=== PATIENT | male | born 1975 | race Two or more races ===

== ENCOUNTER 2016-09-01 13:24 | Emergency (ER) | payer SELFPAY ==
--- NOTE | 2016-09-01 14:35 | ER Document Report ---
HPI - HPI Patient complains to provider of: ear fullness in the right ear Onset: Other Onset/Duration: Gradual - This week Pain Level: 4 Context: 40-year-old male complaining of ear pain ear fullness and ringing in his ears. He recently had an upper respiratory infection no fever or chills. He can hear better out of his left ear than his right ear. Associated Symptoms: None Exacerbated by: Denies Relieved by: Denies - ROS ROS below otherwise negative: Yes Systems Reviewed and Negative: Yes All other systems reviewed and negative - CARDIOVASCULAR Cardiovascular: DENIES: Chest pain - DERM Skin Color: Normal Past Medical History - General Information source: Patient - Social History Smoking Status: Never Smoker Chew tobacco use (# tins/day): No Frequency of alcohol use: None Drug Abuse: None Lives with: Family Family History: Reviewed & Not Pertinent Patient has suicidal ideation: No Patient has homicidal ideation: No - Medical History Medical History: Negative Renal/ Medical History: Denies: Hx Peritoneal Dialysis Surgical Hx: Negative - Immunizations Hx Diphtheria, Pertussis, Tetanus Vaccination: No Vertical Provider Document - CONSTITUTIONAL Agree With Documented VS: Yes General Appearance: No Apparent Distress - INFECTION CONTROL TRAVEL OUTSIDE OF THE [place] IN LAST 30 DAYS: No - HEENT HEENT: Normocephalic Notes: Left TM is normal there is minimal amount wax in the left ear canal which is normal. Right ear canal is occluded with cerumen. - NECK Neck: Supple. negative: Lymphadenopathy-Left, Lymphadenopathy-Right - RESPIRATORY Respiratory: Breath Sounds Normal, No Respiratory Distress O2 Sat by Pulse Oximetry: 96 - CARDIOVASCULAR Cardiovascular: Regular Rate, Regular Rhythm - MUSCULOSKELETAL/EXTREMETIES Musculoskeletal/Extremeties: NIKHIL BERUMEN - NEURO Level of Consciousness: Awake, Alert, Appropriate - DERM Integumentary: Warm, Dry, No Rash Course - Re-evaluation Re-evalutation: 09/01/16 15:31 I irrigated the ear with warm water and wax female easily. His hearing is now normal in his right ear. Right ear canal and eardrum after wax removal 09/01/16 15:34 - Vital Signs Vital signs: Temp Pulse Resp BP Pulse Ox 98.9 F 92 17 135/92 H 96 09/01/16 13:54 09/01/16 13:54 09/01/16 13:54 09/01/16 13:54 09/01/16 13:54 Discharge - Discharge Clinical Impression: cerumen impaction Condition: Good Disposition: HOME, SELF-CARE Instructions: Cerumen Impaction ([facility]) Additional Instructions: to er any concern Forms: Return to Work
[2016-09-01] MEDS ORDERED: DOCUSATE SODIUM 100 MG CAPSULE RT_EAR ONE (14:37)
[2016-09-01 15:58] VITALS: BP 141/82
== END 2016-09-01 15:57 | disposition home or self-care (01) ==
LOC: ER 13:24 → EDBD 13:24 → ER 15:57
DX: H61.21 Impacted cerumen, right ear (principal); H92.01 Otalgia, right ear
CPT/HCPCS: 99282

== ENCOUNTER 2016-12-29 23:50 | Inpatient (IN) | payer MEDICARE ==
[2016-12-30 01:04] LABS: ABSOLUTE LYMPHOCYTES (AUTO) 1.1 10^3/uL (0.5-4.7); ABSOLUTE MONOCYTES (AUTO) 1.1 10^3/uL (0.1-1.4); ABSOLUTE NEUT (AUTO) 10.1 10^3/uL (1.7-8.2); BASOPHILS % (AUTO) 0.4 % (0-2); EOSINOPHILS % (AUTO) 0.3 % (0-6); HEMOGLOBIN 15.2 g/dL (13.5-17.0); HGB HCT DIFFERENCE -0.4; LYMPHOCYTES % (AUTO) 8.9 % (13-45); MEAN CORPUSCULAR HEMOGLOBIN 29.9 pg (27.0-33.4); MEAN CORPUSCULAR HGB CONC 33.1 g/dL (32.0-36.0); MEAN CORPUSCULAR VOLUME 90 fl (80-97); MONOCYTES % (AUTO) 8.6 % (3-13); RED CELL DISTRIBUTION WIDTH 13.5 % (11.5-14.0); SEGMENTED NEUTROPHILS % (AUTO) 81.8 % (42-78); WHITE BLOOD COUNT 12.3 10^3/uL (4.0-10.5)
[2016-12-30 01:11] LABS: ALANINE AMINOTRANSFERASE 33 U/L (21-72); ALBUMIN 3.7 g/dL (3.5-5.0); ALKALINE PHOSPHATASE 52 U/L (38-126); ANION GAP 11 (5-19); ASPARTATE AMINO TRANSFERASE 26 U/L (17-59); BILIRUBIN,DIRECT 0.3 mg/dL (0.0-0.4); BILIRUBIN,TOTAL 0.5 mg/dL (0.2-1.3); BLOOD UREA NITROGEN 32 mg/dL (7-20); CALCIUM 8.4 mg/dL (8.4-10.2); CARBON DIOXIDE 23 mmol/L (22-30); CHLORIDE 106 mmol/L (98-107); CREATININE RESULT 2.25 mg/dL (0.52-1.25); GLUCOSE 102 mg/dL (75-110); POTASSIUM 4.2 mmol/L (3.6-5.0); TOTAL PROTEIN 6.7 g/dL (6.3-8.2)
[2016-12-30] MEDS ORDERED: PIPERACILLIN/TAZOBACTAM 3.375 GM VIAL IV ONE (02:01)
[2016-12-30] MEDS ORDERED: VANCOMYCIN HCL INJ 1000 MG VIAL IV ONE (02:01)
[2016-12-30] MEDS ORDERED: HYDROMORPHONE HCL INJ/PF 2 MG/ML AMPULE IV ONE (02:01)
--- NOTE | 2016-12-30 02:07 | ER Document Report ---
ED General - General Chief Complaint: Fall Injury Stated Complaint: FALL/RIGHT LEG INJURY Time Seen by Provider: 12/30/16 01:56 TRAVEL OUTSIDE OF THE [place] IN LAST 30 DAYS: No - Related Data Allergies/Adverse Reactions: tramadol Allergy (Verified 12/30/16 00:10) Past Medical History - Social History Smoking Status: Never Smoker Chew tobacco use (# tins/day): No Frequency of alcohol use: None Drug Abuse: None Family History: Reviewed & Not Pertinent Renal/ Medical History: Denies: Hx Peritoneal Dialysis - Immunizations Hx Diphtheria, Pertussis, Tetanus Vaccination: No Physical Exam - Vital signs Vitals: Temp Pulse Resp BP Pulse Ox 99.0 F 94 18 154/103 H 98 12/30/16 00:10 12/30/16 00:10 12/30/16 00:10 12/30/16 00:10 12/30/16 00:10 Course - Re-evaluation Re-evalutation: 12/30/16 02:08 Chronically ill 41-year-old male with heart failure and chronic kidney disease presenting with what he describes as acute onset ecchymosis redness and pain of the right lower extremity after an injury 3 days ago consisting of scratches. He has a low-grade temperature. On exam he has ecchymosis on the medial calf with tenderness in an area of fluctuance. Taken together these findings are slightly concerning for necrotizing soft tissue infection. He was ordered for Zofran Zosyn and vancomycin and fluids. His labs are already coming back and his white count is mildly elevated. His sodium is normal. I immediately spoke with Dr. Hirsch from surgery at 2 AM who agreed to see the patient in consultation. I attempted needle aspiration of the abscess cavity but did not get any fluid. Will pursue formal I&D eventually. - Vital Signs Vital signs: Temp Pulse Resp BP Pulse Ox 99.0 F 94 18 160/99 H 97 12/30/16 00:10 12/30/16 00:10 12/30/16 00:10 12/30/16 02:19 12/30/16 02:19 - Laboratory Result Diagrams: 12/30/16 00:40 12/30/16 00:40 Laboratory results interpreted by me: 12/30/16 12/30/16 12/30/16 00:40 00:40 00:40 WBC 12.3 H Seg Neutrophils % 81.8 H Lymphocytes % 8.9 L Absolute Neutrophils 10.1 H ESR 29 H BUN 32 H Creatinine 2.25 H Est GFR ( Amer) 39 L Est GFR (Non-Af Amer) 33 L C-Reactive Protein 12/30/16 00:40 WBC Seg Neutrophils % Lymphocytes % Absolute Neutrophils ESR BUN Creatinine Est GFR ( Amer) Est GFR (Non-Af Amer) C-Reactive Protein 25.7 H Discharge - Discharge Clinical Impression: Hematoma of lower extremity Qualifiers: Encounter type: initial encounter Laterality: right Qualified Code(s): S80.11XA - Contusion of right lower leg, initial encounter Condition: Good Disposition: ADMITTED INPATIENT Admitting Provider: Hospitalist Unit Admitted: Telemetry
[2016-12-30] MEDS ORDERED: LIDOCAINE 1% INJ (10 MG/ML) 10 ML MDV INJ ONE (02:32)
--- NOTE | 2016-12-30 03:19 | RADIOLOGY REPORT (SQ) ---
EXAM DESCRIPTION: TIBIA FIBULA RIGHT COMPLETED DATE/TIME: 12/30/2016 3:00 am REASON FOR STUDY: r/o gas, soft tissue inf COMPARISON: None. NUMBER OF VIEWS: Two views. TECHNIQUE: Two radiographic images acquired of the right tibia and fibula to include the knee and an kle in at least one projection. LIMITATIONS: None. FINDINGS: MINERALIZATION: Normal. BONES: No acute fracture or dislocation. No worrisome bone lesions. SOFT TISSUES: Moderate diffuse swelling. No radiopaque foreign body. OTHER: No other significant finding. IMPRESSION: Moderate diffuse swelling of the right lower leg. No significant bone or joint defect. TECHNICAL DOCUMENTATION: JOB ID: [id number] [employer]- All Rights Reserved
--- NOTE | 2016-12-30 04:37 | HISTORY AND PHYSICAL E ---
History and Physical NAME: JANNETTE ROQUE : 1975 AGE: 41Y ADMITTED: 12/30/2016 ROOM: ED16 CHIEF COMPLAINT: Pains and swelling of the right lower leg. HISTORY OF PRESENT ILLNESS: This is a 41-year-old male, who has right leg fell through a wooden floor about 4 days ago. He sustained bruises on the right lower leg up to above the knee. He was able to work 2 shifts yesterday and later last night noted that his leg is more swollen, but denies any significant discomfort. Because of the swelling and prominence on the right above ankle area, the patient went to the emergency room. 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 He was diagnosed to have congestive heart failure and kidney failure. His cardiac functions apparently recovered with the cardiac function of 59% about 2 years ago, but his kidney function remained stage III kidney failure with a creatinine of about 2.5. MEDICATIONS: He is on daily p.o. Lasix, 200 mg of metoprolol. Takes also another cardiac medication. ALLERGIES: None known. SOCIAL HISTORY: Denies smoking. Drinks socially. Denies recreational drug use. FAMILY HISTORY: Noncontributory. REVIEW OF SYSTEMS: Denies any visual or hearing problems. No chest pain, shortness of breath, diarrhea. No constipation or dysuria. Some mild discomfort along the right leg. Rest of the systems reviewed and are normal. PHYSICAL EXAMINATION: GENERAL: Well-developed, somewhat obese 41-year-old male, alert and oriented, in no apparent acute distress. HEENT/NECK: Supple. No thyromegaly. LUNGS: Clear. HEART: Regular sinus rhythm. ABDOMEN: Soft, nontender. EXTREMITIES: The right leg has scratches from the ankle all the way to above the knee. There is some dark discoloration of the right calf and slightly more swollen compared to the left. No tenderness of the calf, but some mild discomfort in dorsal flexion of the foot. He has got prominent swelling on the right medial above ankle area roughly measuring about 2 inch x 2 inch. There is no fluctuation, but definitely has some skin stretching and minimal tenderness. Unfortunately, this area was percutaneously attempted to be drained in the ER. This appears to be an obvious hematoma. The fact that needle was introduced potentially a potential for infection. IMPRESSION: 1. Hematoma on right lower leg. 2. Rule out DVT. 3. History of stage III kidney failure. RECOMMENDATIONS: 1. To do an ultrasound of both leg veins to rule out DVT on the right leg. 2. Will need incision and drainage of the hematoma to prevent potential infection and may need to be done in the OR. Therefore, we may keep the patient n.p.o. and start hydration because of his stage III kidney failure. DICTATING PHYSICIAN: ISRAEL MC M.D. [id number] PHY#: [id number] ID: [id number] JOB#: [id number] ACCT: [id number] cc:MIKAELA GRULLON M.D. >
[2016-12-30] MEDS ORDERED: DIPH/PERTUSS(ACELL)/TETANUS VAC/PF 0.5 ML SYR (>=10YO) IM ONE (04:50)
[2016-12-30] MEDS ORDERED: MORPHINE SULFATE 10 MG/ML INJ IV PRN (04:51)
[2016-12-30] MEDS ORDERED: PROMETHAZINE HCL 25 MG TABLET PO PRN (04:53)
[2016-12-30] MEDS ORDERED: DEXTROSE 40% GEL 15 GM TUBE PO PRN ×2 (04:54)
[2016-12-30] MEDS ORDERED: DEXTROSE 50%-WATER 25 GM/50 ML DISP.SYRIN IV PRN ×2 (04:54)
[2016-12-30] MEDS ORDERED: DEXTROSE 5%-NORMAL SALINE 1,000 ML IV PRN (04:54)
[2016-12-30] MEDS ORDERED: GLUCAGON,HUMAN RECOMB 1 MG INJ SUBCUT PRN (04:54)
[2016-12-30] MEDS ORDERED: ACETAMINOPHEN 325 MG TABLET PO PRN (04:58)
[2016-12-30] MEDS ORDERED: PHARMACY COMMUNICATION ORDER MC SCH (05:00)
[2016-12-30] MEDS ORDERED: VANCOMYCIN HCL 0 MG in DEXTROSE 5%-WATER 250 ML IV NR (05:00)
--- NOTE | 2016-12-30 05:14 | PDOC H&P ---
History of Present Illness Admission Date/PCP: 12/30/16 03:15 Primary care provider none Patient complains of: Right lower extremity swelling and pain History of Present Illness: JANNETTE ROQUE is a 41 year old morbidly obese -[place] male, with a number of underlying chronic comorbidities, including hypertension, chronic kidney disease, uncertain stage, congestive heart failure, recently significantly improved according to patient, by echocardiogram, obstructive sleep apnea, setting of 13, without home O2, arthritis, mild anxiety and depression, without suicidal or homicidal ideation, and neurofibromatosis, who presents to the emergency room for evaluation of above complaints. Patient has been discussed with emergency room physician who evaluated the patient. Prior to my being called, the patient was seen and evaluated by on- call general surgery, who according to the emergency room physician, plans to take the patient to the operating room for exploration of the area of involvement later this morning. Per emergency room physician, surgeon did not feel the area of involvement was consistent with necrotizing fasciitis. While walking through a house 3 days ago, he stepped on an area that had been damaged by water, and his right leg went through the floor. Suffered a number of mild abrasions. Since then, he has had slowly increasing redness tenderness and some swelling. There is been no nausea vomiting, fever or chills. No history of MRSA infection. Has been greater than 5 years since his last tetanus booster. Dictation via voice recognition software. Laboratory results are listed in [employer] and are reviewed. X-ray summary results are listed below, with full report(s) reviewed. . Social history/personal habits: Single. No children. 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 Allergies/adverse reactions are listed in [employer] and are reviewed. Home medications initially autopopulated into [employer] may not accurately reflect patient's true medications, dosages, and/or frequencies. pc tech to reconcile medications. Unfortunately, patient not certain of all medications/dosages/frequencies. REVIEW OF SYSTEMS: Constitutional: No fever or chills. Eyes: No vision complaints. ENT: No swallowing problems or complaints. Denies hearing loss. Pulmonary: No current complaints. Cardiovascular: No current complaints, including chest pain. Gastrointestinal: No current complaints, including nausea or vomiting. Skin: See history and present illness. Hematologic: Denies easy bruising. Neurologic: No current complaints, including numbness or tingling. Musculoskeletal: See history and present illness. Joint pain from arthritis. Psychiatric: Mild anxiety and depression. Denies suicidal or homicidal ideation Endocrine: No current complaints, including polyuria. Genitourinary: No current complaints, including dysuria. PHYSICAL EXAMINATION: 5 feet 7 inches tall. 147.7 kg. BMI 51 kg/m.Blood pressure 156/92. 98% saturation on room air. Pulse 94. Temperature 99.0. Morbidly obese otherwise well-developed -[place] male appearing a bit younger than his stated age. Pleasant awake alert and cooperative. Appears perhaps slightly fatigued. Mildly anxious, without agitation. Skin is warm and dry. No grossly obvious evidence of rash in areas of skin examined. Multiple small nodules, in particular on the face, typically seen with neurofibromatosis. ENT: Hearing grossly normal to normal conversation. Tongue midline on protrusion pink and slightly moist. Eyes: No scleral icterus. Pupils equal and reactive to light at 4 mm. Acme conjunctivae. Neck is supple and nontender to gentle active range of motion and palpation. Midline trachea. No palpable thyroid nodule mass enlargement or tenderness. Lymphatic: No palpable cervical or clavicular nodes. Neck and lymphatic exams limited by patient body habitus. Psychiatric: Reasonable insight into acute and chronic medical issues. Oriented to time location and why here. Lungs: Auscultation reveals clear and equal breath sounds bilaterally. No use of accessory respiratory muscles. Cardiovascular: Heart regular rate and rhythm, without gallop murmur or rub. No carotid or abdominal aortic bruits. Faintly palpable dorsalis pedis pulses. Abdomen:soft obese nontender with positive bowel sounds. Unable to adequately evaluate abdomen for masses or organomegaly due to body habitus. Extremities: Feet are warm and dry. No left calf tenderness to compression. No grossly obvious visual evidence of left calf swelling. Gentle manipulation of lower extremities fails to reveal any obvious evidence of injury or instability to knees hips or ankles. Examination of the right lower extremity reveals a number of linear scratches/ abrasions on the medial surface. He has mild diffuse inflammation slight warmth , and tenderness in the areas of involvement with the scratches and abrasions. Mild soft tissue swelling also, extending onto the dorsum of the right foot. Number of areas of ecchymosis, including somewhat localized slightly raised area approximately 3 x 5 cm. Of note, emergency room physician attempted to aspirate the site, but without success. No crepitus fluctuance or expressible discharge. Neurologic: Moves upper extremities grossly normally. Patellar reflexes absent. Absent Babinski. Light touch is intact at feet. Dorsiflexion and plantarflexion of feet 5 / 5 and symmetric. Past Medical History Cardiac Medical History: Reports: Congestive Heart Failure, Hypertension Denies: Atrial Fibrillation, Coronary Artery Disease, DVT, Myocardial Infarction, Hyperlipidema, Pulmonary Embolism Pulmonary Medical History: Reports: Sleep Apnea Denies: Asthma, Chronic Obstructive Pulmonary Disease (COPD) EENT Medical History: Denies: Eyes, Ears, Throat Neurological Medical History: Denies: Hemorrhagic CVA, Ischemic CVA, Seizures Endocrine Medical History: Denies: Diabetes Mellitus Type 1, Diabetes Mellitus Type 2, Hyperthyroidism, Hypothyroidism Renal/ Medical History: Reports: Chronic Kidney Disease - Uncertain stage; no old labs available for comparison GI Medical History: Denies: Cirrhosis, Gastroesophageal Reflux Disease, Hepatitis, Peptic Ulcer Disease Musculoskeltal Medical History: Reports: Arthritis Skin Medical History: Reports: Other - Neurofibromatosis Psychiatric Medical History: Reports: Depression - Denies suicidal or homicidal ideation, General Anxiety Disorder Denies: Alcohol Dependency, Substance Abuse, Tobacco Dependency Hematology: Reports: None Infectious Medical History: Denies: Hepatitis B, Hepatitis C, Methicillin-Resistant Staph Aureus Past Surgical History Past Surgical History: Reports: Cholecystectomy Social History Information Source: Patient, Emergency Med Personnel, [facility] Records Smoking Status: Unknown if Ever Smoked Frequency of Alcohol Use: Social Drugs: None - Advance Directive Resuscitation Status: Full Code Surrogate healthcare decision maker:: A friend Jered ulrich Family History Family History: Reviewed & Not Pertinent Parental Family History Reviewed: Yes - Parents are alive. Father diabetic. Mother with "tumors." Children Family History Reviewed: NA Sibling(s) Family History Reviewed.: Yes - Healthy Medication/Allergy Home Medications: Fosinopril Sodium [Monopril] 40 mg PO DAILY 12/30/16 Furosemide [Lasix] 40 mg PO DAILYP PRN 12/30/16 Metoprolol Succinate [Toprol XL 200 mg Tablet] 200 mg PO DAILY 12/30/16 Sodium Bicarbonate 975 mg PO BID 12/30/16 Spironolactone [Aldactone 25 mg Tablet] 25 mg PO DAILY 12/30/16 Allergies/Adverse Reactions: tramadol Allergy (Verified 12/30/16 04:51) Physical Exam Vital Signs: Temp Pulse Resp BP Pulse Ox 99.0 F 94 18 156/92 H 98 12/30/16 00:10 12/30/16 00:10 12/30/16 00:10 12/30/16 04:32 12/30/16 04:32 Results Impressions: Tibia/Fibula X-Ray 12/30/16 02:01 IMPRESSION: Moderate diffuse swelling of the right lower leg. No significant bone or joint defect. Assessment & Plan - Diagnosis (1) Cellulitis of right leg Is this a current diagnosis for this admission?: YesPlan: Intravenous vancomycin, along with Ancef. Surgery to take patient to the operating room this morning for exploration of the area of involvement. Tdap. I have strongly encouraged patient not to get out of bed without notifying staff , to avoid a fall with injury. Knee high SCDs for DVT prophylaxis, left lower extremity only, along with subcutaneous heparin. Impression and plans were discussed with patient, who concurs. Time spent in evaluation and management of patient: 70 minutes. (2) CHF (congestive heart failure) Qualifiers: Congestive heart failure type: unspecified congestive heart failure type Congestive heart failure chronicity: chronic Qualified Code(s): I50.9 - Heart failure, unspecified Is this a current diagnosis for this admission?: YesPlan: No evidence of acute exacerbation of same. Resume home medications as appropriate once these have been determined and reviewed. (3) CKD (chronic kidney disease) Qualifiers: Chronic kidney disease stage: unspecified stage Qualified Code(s): N18.9 - Chronic kidney disease, unspecified Is this a current diagnosis for this admission?: YesPlan: No old labs available for comparison. Follow-up chemistry. Resume home medications as appropriate once these have been determined and reviewed. (4) HTN (hypertension) Qualifiers: Hypertension type: essential hypertension Qualified Code(s): I10 - Essential (primary) hypertension Is this a current diagnosis for this admission?: YesPlan: Resume home medications as appropriate once these have been determined and reviewed. (5) Morbid obesity with BMI of 50.0-59.9, adult Is this a current diagnosis for this admission?: YesPlan: Dietary consult. (6) Neurofibromatosis Is this a current diagnosis for this admission?: Yes (7) STEVIE (obstructive sleep apnea) Is this a current diagnosis for this admission?: YesPlan: CPAP - Time Time Spent: 50 to 70 Minutes Anticipated discharge: Home Within: Other - Inpatient Certification Based on my medical assessment, after consideration of the patient's comorbidities, presenting symptoms, or acuity I expect that the services needed warrant INPATIENT care.: Yes I certify that my determination is in accordance with my understanding of Medicare's requirements for reasonable and necessary INPATIENT services [42 CFR 412.3e].: Yes Medical Necessity: Need Close Monitoring Due to Risk of Patient Decompensation, Need For IV Fluids, Need for IV Antibiotics, Need for Surgery, Risk of Complication if Not Cared For in Hospital Post Hospital Care: D/C or Transfer Summary
[2016-12-30] MEDS ORDERED: CEFAZOLIN 1 GM/D5W RTU 1 GM/50 ML RTUPB IV SCH (06:00)
[2016-12-30] MEDS: HEPARIN SOD (PORCINE) 5,000 UNIT/ML 1 ML SYRINGE SUBCUT SCH ×3 (06:37→21:28)
[2016-12-30 07:06] LABS: ABSOLUTE EOSINOPHILS # (AUTO) 0.1 10^3/uL (0.0-0.6); ABSOLUTE LYMPHOCYTES (AUTO) 1.1 10^3/uL (0.5-4.7); ABSOLUTE NEUT (AUTO) 6.9 10^3/uL (1.7-8.2); BASOPHILS % (AUTO) 0.5 % (0-2); EOSINOPHILS % (AUTO) 0.6 % (0-6); HEMOGLOBIN 14.4 g/dL (13.5-17.0); HGB HCT DIFFERENCE 0.2; MEAN CORPUSCULAR HEMOGLOBIN 30.5 pg (27.0-33.4); MEAN CORPUSCULAR HGB CONC 33.5 g/dL (32.0-36.0); MEAN CORPUSCULAR VOLUME 91 fl (80-97); MONOCYTES % (AUTO) 10.8 % (3-13); RED BLOOD COUNT 4.72 10^6/uL (4.35-5.55); RED CELL DISTRIBUTION WIDTH 13.6 % (11.5-14.0); SEGMENTED NEUTROPHILS % (AUTO) 76.1 % (42-78); WHITE BLOOD COUNT 9.1 10^3/uL (4.0-10.5)
[2016-12-30 07:29] LABS: ANION GAP 9 (5-19); BLOOD UREA NITROGEN 28 mg/dL (7-20); CALCIUM 8.3 mg/dL (8.4-10.2); CARBON DIOXIDE 23 mmol/L (22-30); CHLORIDE 109 mmol/L (98-107); CREATININE RESULT 1.82 mg/dL (0.52-1.25); GLUCOSE 100 mg/dL (75-110); POTASSIUM 4.2 mmol/L (3.6-5.0); SODIUM 140.8 mmol/L (137-145)
[2016-12-30] MEDS ORDERED: SUCCINYLCHOLINE CHLORIDE INJ 200 MG/10 ML VIAL ONE (08:53)
--- NOTE | 2016-12-30 09:35 | RADIOLOGY REPORT (SQ) ---
EXAM DESCRIPTION: VENOUS UNILATERAL LOWER COMPLETED DATE/TIME: 12/30/2016 2:34 am REASON FOR STUDY: swelling COMPARISON: None. TECHNIQUE: Dynamic and static gomez scale and color images acquired of the right leg venous system. S elected spectral images acquired with additional compression and augmentation maneuvers. The contrala teral common femoral vein and saphenofemoral junction were also imaged. Images stored on PACS. LIMITATIONS: None. FINDINGS: RIGHT COMMON FEMORAL: Normal phasicity, compression and augmentation. No visualized echogenic material on g ray scale. No defects on color images. FEMORAL: Normal compression and augmentation. No visualized echogenic material on gomez scale. No defe cts on color images. POPLITEAL: Normal compression, augmentation. No visualized echogenic material on gomez scale. No defec ts on color images. CALF VESSELS: Normal compression, augmentation. No visualized echogenic material on gomez scale. No de fects on color images. GSV and SSV: Normal compression, augmentation. No visualized echogenic material on gomez scale. No def ects on color images. ANY DEEP VENOUS INSUFFICIENCY: Not evaluated. In the right upper medial calf, 8 heterogeneously hypoechoic structure is present along the superfici al aspect of the medial head gastrocnemius muscle which could be a Manzo's cyst with superimposed hem orrhage or infection, or, a soft tissue hematoma. Muscular tear with hematoma is possible. By imagi ng criteria, abscess could not be excluded. LEFT COMMON FEMORAL VEIN AND SAPHENOFEMORAL JUNCTION: Normal phasicity, compression and augmentation. No visualized echogenic material on gomez scale. No de fects on color images. IMPRESSION: NO EVIDENCE OF DVT OR SVT IN THE RIGHT LEG. 4.3 x 1.5 x 1.4 cm complex cystic structure in the medial right popliteal fossa, likely a complicated Manzo's cyst with superimposed hemorrhage or rupture. TECHNICAL DOCUMENTATION: JOB ID: [id number] [employer]- All Rights Reserved
[2016-12-30] MEDS ORDERED: FENTANYL CITRATE INJ/PF 250 MCG/5 ML AMPULE ONE (10:15)
[2016-12-30] MEDS ORDERED: FENTANYL CITRATE INJ/PF 100 MCG/2 ML AMPUL ONE (10:15)
[2016-12-30] MEDS ORDERED: ACETAMINOPHEN 100 ML IV ONE (10:16)
[2016-12-30] MEDS ORDERED: MIDAZOLAM 2 MG/2 ML INJ ONE (10:16)
[2016-12-30] MEDS ORDERED: PROPOFOL INJ 200 MG/20 ML VIAL IV ONE (10:16)
[2016-12-30] MEDS ORDERED: BUPIVACAINE HCL 0.25 % INJ/PF (2.5 MG/1 ML) 30 ML VIAL ONE (10:23)
--- NOTE | 2016-12-30 10:59 | PDOC PROGRESS REPORT ---
Subjective Progress Note for:: 12/30/16 Subjective:: Mild right leg pain. Physical Exam Vital Signs: Temp Pulse Resp BP Pulse Ox 99.0 F 94 18 157/96 H 98 12/30/16 00:10 12/30/16 00:10 12/30/16 09:49 12/30/16 09:49 12/30/16 09:49 General appearance: PRESENT: no acute distress, cooperative Extremities exam: PRESENT: other - Lower leg with bruising superficial abrasions and mild diffuse swelling. At the inner lower aspect there is a approximately 3 x 5 cm region of fluctuance consistent with a hematoma. Patient has no tenderness behind his right knee and no focal swelling in this region. Results Laboratory Results: 12/30/16 06:50 12/30/16 06:50 12/30/16 12/30/16 06:50 06:50 WBC 9.1 RBC 4.72 Hgb 14.4 Hct 43.0 MCV 91 MCH 30.5 MCHC 33.5 RDW 13.6 Plt Count 226 Seg Neutrophils % 76.1 Lymphocytes % 12.0 L Monocytes % 10.8 Eosinophils % 0.6 Basophils % 0.5 Absolute Neutrophils 6.9 Absolute Lymphocytes 1.1 Absolute Monocytes 1.0 Absolute Eosinophils 0.1 Absolute Basophils 0.0 Sodium 140.8 Potassium 4.2 Chloride 109 H Carbon Dioxide 23 Anion Gap 9 BUN 28 H Creatinine 1.82 H Est GFR ( Amer) 50 L Est GFR (Non-Af Amer) 42 L Glucose 100 Calcium 8.3 L Magnesium 2.0 Impressions: Tibia/Fibula X-Ray 12/30/16 02:01 IMPRESSION: Moderate diffuse swelling of the right lower leg. No significant bone or joint defect. Venous Doppler Study 12/30/16 02:34 IMPRESSION: NO EVIDENCE OF DVT OR SVT IN THE RIGHT LEG. 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 Assessment & Plan - Diagnosis (1) Leg hematoma Qualifiers: Encounter type: initial encounter Laterality: right Qualified Code( s): S80.11XA - Contusion of right lower leg, initial encounter Plan: Status post attempted needle aspiration by emergency department. We will plan evacuation of hematoma in the operating room to avoid infectious risk. Patient understands risk and benefits of the procedure including risk of bleeding and prolonged wound healing. We will plan to do the procedure under LMAC in light of his cardiac Problems in the past. Ultrasound the demonstrated no DVT but did note a Manzo's cyst. It is asx. will leave alone.
[2016-12-30] MEDS ORDERED: IBUPROFEN INJ 800 MG/8 ML VIAL IV ONE (11:12)
[2016-12-30] MEDS ORDERED: METOPROLOL TARTRATE PF/INJ 5 MG/5 ML SDV IV ONE (11:12)
[2016-12-30] MEDS ORDERED: FENTANYL CITRATE INJ/PF 100 MCG/2 ML AMPUL IV PRN ×2 (11:23)
[2016-12-30] MEDS ORDERED: DIPHENHYDRAMINE HCL 50 MG/ML VIAL IV PRN (11:23)
[2016-12-30] MEDS ORDERED: CEFAZOLIN INJ 1 GM VIAL ONE (11:37)
[2016-12-30] MEDS ORDERED: ONDANSETRON HCL INJ/PF 4 MG/2 ML SDV IV PRN (11:44)
--- NOTE | 2016-12-30 11:44 | Operative Report ---
Operative Report DATE OF SURGERY: 12/30/16 PREOPERATIVE DIAGNOSIS: Right leg hematoma POSTOPERATIVE DIAGNOSIS: Right leg hematoma OPERATION: Right leg hematoma evacuation SURGEON: ELIOT REYNAGA ANESTHESIA: GA TISSUE REMOVED OR ALTERED: Blood clots from the right leg COMPLICATIONS: None ESTIMATED BLOOD LOSS: Minimal INTRAOPERATIVE FINDINGS: Approximately 8 x 4 cm hematoma of the right inner lower leg PROCEDURE: Informed consent was obtained. Patient was brought to the operating room placed on the operating table in supine position. After satisfactory induction of general anesthesia patient's right leg was prepped and draped in usual sterile fashion. Patient had a region of fluctuance and bruising at the inner lower aspect of the right lower leg. A longitudinally oriented incision was made entering a hematoma cavity with evacuation of copious amount of blood clots. The blood clot was swabbed for Gram stain and culture. The cavity measured about 8 x 4 cm in size. Hemostasis was achieved with electrocautery. The wound was then irrigated. It was packed with gauze. Patient tolerated procedure well with no apparent complications and was taken to the recovery area in stable condition.
[2016-12-30] MEDS: DOCUSATE SODIUM 100 MG CAPSULE PO SCH ×2 (13:48→18:40)
[2016-12-30] MEDS: CEFAZOLIN 1 GM/D5W RTU 50 ML IV SCH ×3 (13:48→23:25)
[2016-12-30] MEDS ORDERED: METOPROLOL TARTRATE 50 MG TABLET PO ONE (15:00)
--- NOTE | 2016-12-30 15:02 | PROGRESS NOTE E ---
Progress Note NAME: JANNETTE ROQUE : 1975 AGE: 41Y DATE: 12/30/2016 ROOM: 405 SUBJECTIVE: The patient is currently sitting up in bed. He has returned from the OR. The patient states that his symptoms overall are much improved in comparison to when he came in. The patient denies any nausea, vomiting, diarrhea. No shortness of breath, dizziness, chest pain. No fevers, chills. The patient has been afebrile. His blood pressures have been in a good range and the patient does not voice any other concerns at this time. REVIEW OF SYSTEMS: The rest of review of systems are negative. MEDICATIONS: Medications have been reviewed. PHYSICAL EXAMINATION: GENERAL: The patient is a 41-year-old male, who is awake, alert, and oriented to person, place, time, situation. He is verbal, conversational. Does not appear to be in any acute distress. VITAL SIGNS FOLLOWS: Temperature is 98.2, pulse 62, respirations 17, blood pressure 141/90, oxygen saturation is 100% on room air. SKIN: Warm. The patient is diaphoretic. HEENT: Pupils are equal, round, and reactive to light and accommodation. Conjunctivae pink. NECK: No JVP. HEART: Regular rate and rhythm with no murmur or rub. CHEST: Clear, symmetrical, unlabored. ABDOMEN: Soft, nontender, nondistended, obese. BACK: No CVA tenderness or sacral edema. EXTREMITIES: No clubbing or cyanosis. The patient does have evidence of chronic lymphedema lower extremities. Right lower extremity is wrapped in postsurgical dressing. PSYCHIATRIC: Appropriate affect, pleasant mood. DIAGNOSTICS: Lab values are as follows: Hematology obtained on 12/30/2016: WBCs are 9.1, hemoglobin is 14.4, hematocrit is 43.0, platelet count is 226,000. Chemistry obtained on 12/30/2016: Sodium is 140, potassium 4.2, chloride is 109, carbon dioxide 23, BUN 28, creatinine is 1.82, glucose 100, calcium is 8.3, magnesium is 2.0. C-reactive protein is 25.7. MICROBIOLOGY: Wound culture obtained on 12/30/2016 is pending. Blood culture obtained on 12/30/2016 is pending. IMPRESSION AND PLAN: 1. CELLULITIS OF THE RIGHT LOWER EXTREMITY. The patient's hematoma was seen by Surgery and the patient was taken to the operating room for evacuation. The site is currently covered. Will continue current antibiotic coverage. The patient has no prior history of methicillin-resistant Staphylococcus aureus. He did receive a dose of vancomycin in the emergency department. Will await cultures and further guide antibiotic management pending those results. 2. HYPERTENSION. The patient's blood pressure has been mildly elevated. Will resume the patient's home blood pressure medications and follow. 3. ELEVATED CREATININE. Uncertain of the etiology of this. The patient does have noted chronic kidney disease, however, the patient is uncertain when questioned, therefore, I am leery to stage this. Will gently hydrate overnight, repeat creatinine in the a.m., and follow. Given the patient is on chronic bicarbonate, I do feel the patient may have a chronic kidney disease. 4. POSSIBLE HISTORY OF CONGESTIVE HEART FAILURE. The patient gives a report that this may have improved, according to an echocardiogram he had done outpatient. Will continue the patient's beta-cristiano and will add aspirin therapy. He is already on an ARB. 5. OBSTRUCTIVE SLEEP APNEA. Will continue the patient's CPAP. 6. DEEP VENOUS THROMBOSIS PROPHYLAXIS. Will continue subcutaneous heparin. DISPOSITION: The patient is a FULL CODE. Pending patient's symptomatology and diagnostic findings, will reevaluate in the a.m. The patient can be downgraded to a medical bed. Time spent on this followup, including assessment, plan, physical examination, patient education, and speciality collaboration is 35 minutes. DICTATING PHYSICIAN: AUGUSTINA FRANCOIS NP [id number] PHY#: [id number] ID: [id number] JOB#: [id number] ACCT: [id number] cc: >
[2016-12-30] MEDS: NORMAL SALINE 1000 ML 1,000 ML IV PRN (15:57)
[2016-12-30] MEDS ORDERED: SODIUM BICARBONATE PO SCH (18:00)
[2016-12-30] MEDS: SODIUM BICARBONATE 650 MG TABLET PO SCH (18:41)
[2016-12-30] MEDS: OXYCODONE-ACETAMINOPHEN 5-325 MG TABLET PO PRN (21:28)
[2016-12-30] MEDS: METOPROLOL SUCCINATE 50 MG TAB.SR.24H PO SCH (21:28)
[2016-12-30] MEDS ORDERED: METOPROLOL SUCCINATE 100 MG PO SCH (22:00)
[2016-12-31] MEDS: CEFAZOLIN 1 GM/D5W RTU 50 ML IV SCH ×4 (05:25→22:45)
[2016-12-31] MEDS: HEPARIN SOD (PORCINE) 5,000 UNIT/ML 1 ML SYRINGE SUBCUT SCH ×3 (05:49→21:23)
[2016-12-31] MEDS ORDERED: BENZOCAINE/MENTHOL SORE THROAT LOZENGE BUCCAL PRN (09:13)
[2016-12-31] MEDS: METOPROLOL SUCCINATE 50 MG TAB.SR.24H PO SCH ×2 (09:34→21:24)
[2016-12-31] MEDS: ENALAPRIL MALEATE 10 MG TABLET PO SCH (09:35)
[2016-12-31] MEDS: SODIUM BICARBONATE 650 MG TABLET PO SCH ×2 (09:35→17:29)
[2016-12-31] MEDS: DOCUSATE SODIUM 100 MG CAPSULE PO SCH ×2 (09:35→17:29)
[2016-12-31] MEDS: OXYCODONE-ACETAMINOPHEN 5-325 MG TABLET PO PRN ×2 (09:52→21:23)
[2016-12-31] MEDS ORDERED: FUROSEMIDE 40 MG TABLET PO SCH (10:00)
[2016-12-31] MEDS ORDERED: SPIRONOLACTONE 25 MG TABLET PO SCH (10:00)
[2016-12-31] MEDS ORDERED: FOSINOPRIL SODIUM 40 MG PO SCH (10:00)
[2016-12-31] MEDS: NORMAL SALINE 1000 ML 1,000 ML IV PRN (13:23)
--- NOTE | 2016-12-31 14:58 | PDOC PROGRESS REPORT ---
Subjective Progress Note for:: 12/31/16 Subjective:: Patient seen on morning rounds. He is resting comfortably at the present time in bed. He states he has mild to moderate pain in the right lower extremity from surgery. The pain medicine is keeping him comfortable enough. Denies any fever chills. Denies any nausea, vomiting, or abdominal pain. He denies a cough, chest pain or palpitations. Remaining review of systems negative. Physical Exam Vital Signs: Temp Pulse Resp BP Pulse Ox 98.5 F 80 16 127/69 H 98 12/31/16 11:05 12/31/16 14:00 12/31/16 11:05 12/31/16 11:05 12/31/16 13:00 Pulse Oximeter Continuous Start: 12/30/16 15: 42 Freq: RTQ4 Status: Active Document 12/31/16 13:00 [facility] (Rec: 12/31/16 13:25 [facility] [id number]) Pulse Oximetry Assessment Oxygen Saturation (92-100) 98 Oxygen Delivery Method Room Air Fraction of Inspired Oxygen (FIO2) 21 Equipment Usage Equipment in Use Continuous SpO2 Machine # N 5 Intake & Output 12/30/16 12/31/16 01/01/17 06:59 06:59 06:59 Intake Total 2997 Output Total 1445 Balance 1552 Weight 147.7 kg General appearance: PRESENT: no acute distress, morbidly obese, well-developed, well-nourished Head exam: PRESENT: atraumatic, normocephalic Eye exam: PRESENT: conjunctiva pink, EOMI, PERRLA. ABSENT: scleral icterus Ear exam: PRESENT: normal external ear exam Mouth exam: PRESENT: moist, tongue midline Neck exam: ABSENT: carotid bruit, JVD, lymphadenopathy, thyromegaly Respiratory exam: PRESENT: clear to auscultation ambrocio. ABSENT: rales, rhonchi, wheezes Cardiovascular exam: PRESENT: RRR. ABSENT: diastolic murmur, rubs, systolic murmur Pulses: PRESENT: normal dorsalis pedis pul Vascular exam: PRESENT: normal capillary refill GI/Abdominal exam: PRESENT: normal bowel sounds, soft. ABSENT: distended, guarding, mass, organolmegaly, rebound, tenderness Rectal exam: PRESENT: deferred Extremities exam: PRESENT: calf tenderness, full ROM, tenderness, +2 edema - right lower extremity with echymosis Musculoskeletal exam: PRESENT: full ROM, tenderness Neurological exam: PRESENT: alert, awake, oriented to person, oriented to place , oriented to time, oriented to situation, CN II-XII grossly intact. ABSENT: motor sensory deficit Psychiatric exam: PRESENT: appropriate affect, normal mood. ABSENT: homicidal ideation, suicidal ideation Skin exam: PRESENT: dry, intact, warm. ABSENT: cyanosis, rash Results Laboratory Results: 12/30/16 06:50 12/30/16 06:50 Impressions: Tibia/Fibula X-Ray 12/30/16 02:01 IMPRESSION: Moderate diffuse swelling of the right lower leg. No significant bone or joint defect. Venous Doppler Study 12/30/16 02:34 IMPRESSION: NO EVIDENCE OF DVT OR SVT IN THE RIGHT LEG. 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 Assessment & Plan - Diagnosis (1) Cellulitis of right leg Is this a current diagnosis for this admission?: YesPlan: Leucocytosis, resolving with IV broad spectrum antibiotics and evacuation of hematoma (2) Leg hematoma Qualifiers: Encounter type: initial encounter Laterality: right Qualified Code( s): S80.11XA - Contusion of right lower leg, initial encounter Plan: Post op evacuation of hematoma 1 day ago (3) CHF (congestive heart failure) Qualifiers: Congestive heart failure type: unspecified congestive heart failure type Congestive heart failure chronicity: chronic Qualified Code(s): I50.9 - Heart failure, unspecified Is this a current diagnosis for this admission?: YesPlan: Patient is presently slightly still hypovolemic from large muscle contusion of right lower leg (4) CKD (chronic kidney disease) Qualifiers: Chronic kidney disease stage: unspecified stage Qualified Code(s): N18.9 - Chronic kidney disease, unspecified Is this a current diagnosis for this admission?: Yes (5) HTN (hypertension) Qualifiers: Hypertension type: essential hypertension Qualified Code(s): I10 - Essential (primary) hypertension Is this a current diagnosis for this admission?: Yes (6) Morbid obesity with BMI of 50.0-59.9, adult Is this a current diagnosis for this admission?: Yes (7) Neurofibromatosis Is this a current diagnosis for this admission?: Yes (8) STEVIE (obstructive sleep apnea) Is this a current diagnosis for this admission?: YesPlan: CPAP at hs - Time Time Spent with patient: 25-34 minutes Critical Time spent with patient: 15-24 minutes Medications reviewed and adjusted accordingly: Yes Anticipated discharge: Home Within: within 48 hours
--- NOTE | 2016-12-31 16:02 | PROGRESS NOTE E ---
Progress Note NAME: JANNETTE ROQUE : 1975 AGE: 41Y DATE: 12/31/2016 ROOM: 405 This is the first postop day post incision and drainage of a large abscess on the right ankle area, done by Dr. Pearson yesterday. The patient is still complaining of some discomfort and not comfortable going home today. I will give him another day of IV antibiotic today and remove the packing tomorrow. The wound packing slightly soaked with blood at this time. I will leave the packing in place today and I will just take it out tomorrow and put a clipper machine operator packing tomorrow and then discharge to be followed at the surgical clinic under the care of Dr. Pearson. DICTATING PHYSICIAN: ISRAEL MC M.D. [id number] PHY#: [id number] ID: [id number] JOB#: [id number] ACCT: [id number] cc: >
[2017-01-01] MEDS: CEFAZOLIN 1 GM/D5W RTU 50 ML IV SCH ×2 (06:10→11:05)
[2017-01-01] MEDS: HEPARIN SOD (PORCINE) 5,000 UNIT/ML 1 ML SYRINGE SUBCUT SCH ×2 (06:14→13:32)
[2017-01-01 08:28] LABS: ABSOLUTE EOSINOPHILS # (AUTO) 0.1 10^3/uL (0.0-0.6); ABSOLUTE MONOCYTES (AUTO) 0.6 10^3/uL (0.1-1.4); ABSOLUTE NEUT (AUTO) 5.7 10^3/uL (1.7-8.2); BASOPHILS % (AUTO) 0.3 % (0-2); EOSINOPHILS % (AUTO) 0.7 % (0-6); HEMATOCRIT 45.2 % (37.9-51.0); HEMOGLOBIN 14.5 g/dL (13.5-17.0); HGB HCT DIFFERENCE -1.7; LYMPHOCYTES % (AUTO) 13.5 % (13-45); MEAN CORPUSCULAR HEMOGLOBIN 29.7 pg (27.0-33.4); MEAN CORPUSCULAR HGB CONC 32.2 g/dL (32.0-36.0); MEAN CORPUSCULAR VOLUME 92 fl (80-97); MONOCYTES % (AUTO) 7.9 % (3-13); RED CELL DISTRIBUTION WIDTH 13.8 % (11.5-14.0); SEGMENTED NEUTROPHILS % (AUTO) 77.6 % (42-78); WHITE BLOOD COUNT 7.3 10^3/uL (4.0-10.5)
[2017-01-01 08:35] LABS: ANION GAP 9 (5-19); BLOOD UREA NITROGEN 25 mg/dL (7-20); CALCIUM 8.5 mg/dL (8.4-10.2); CARBON DIOXIDE 24 mmol/L (22-30); CHLORIDE 107 mmol/L (98-107); GLUCOSE 122 mg/dL (75-110); POTASSIUM 4.4 mmol/L (3.6-5.0); SODIUM 140.1 mmol/L (137-145)
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
[2017-01-01] MEDS: METOPROLOL SUCCINATE 50 MG TAB.SR.24H PO SCH (11:03)
[2017-01-01] MEDS: DOCUSATE SODIUM 100 MG CAPSULE PO SCH (11:03)
[2017-01-01] MEDS: SODIUM BICARBONATE 650 MG TABLET PO SCH (11:04)
[2017-01-01] MEDS: ENALAPRIL MALEATE 10 MG TABLET PO SCH (11:04)
[2017-01-01 12:35] VITALS: BP 121/50
[2017-01-01] MEDS: OXYCODONE-ACETAMINOPHEN 5-325 MG TABLET PO PRN (13:37)
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
== END 2017-01-01 14:49 | disposition home or self-care (01) | DRG 605 ==
LOC: ER 23:50 → UNDOADMIN 12-30 03:15 → EH 12-30 03:15 → 4N 12-30 13:15
PROVIDERS: ADMIT Family Medicine; ATTEND Family Medicine
PROC: 5A09457 Assistance with Respiratory Ventilation, 24-96 Consecutive Hours, Continuous Positive Airway Pressure (ICD-10-PCS; 2016-12-30)
PROC: 3E0234Z Introduction of Serum, Toxoid and Vaccine into Muscle, Percutaneous Approach (ICD-10-PCS; 2016-12-30)
PROC: 0JCN0ZZ Extirpation of Matter from Right Lower Leg Subcutaneous Tissue and Fascia, Open Approach (ICD-10-PCS; principal; 2016-12-30 10:45)
DX: S80.11XA Contusion of right lower leg, initial encounter (principal); L03.115 Cellulitis of right lower limb; I13.0 Hypertensive heart and chronic kidney disease with heart failure and stage 1 through stage 4 chronic kidney disease, or unspecified chronic kidney disease; Z68.43 Body mass index [BMI] 50.0-59.9, adult; N17.9 Acute kidney failure, unspecified; W19.XXXA Unspecified fall, initial encounter; I50.9 Heart failure, unspecified; N18.3 Chronic kidney disease, stage 3 (moderate); E66.01 Morbid (severe) obesity due to excess calories; G47.33 Obstructive sleep apnea (adult) (pediatric); M19.90 Unspecified osteoarthritis, unspecified site; F41.9 Anxiety disorder, unspecified; F32.9 Major depressive disorder, single episode, unspecified; M71.21 Synovial cyst of popliteal space [Baker], right knee; Q85.00 Neurofibromatosis, unspecified; Z23 Encounter for immunization; Z99.81 Dependence on supplemental oxygen; Z90.49 Acquired absence of other specified parts of digestive tract; Z88.6 Allergy status to analgesic agent; Z79.899 Other long term (current) drug therapy; Z86.718 Personal history of other venous thrombosis and embolism
CPT/HCPCS: 00400; 36415; 80048; 80053; 83735; 85025; 85652; 86140; 87040; 87070; 87075; 87077; 87186; 87205; 90715; 93971; 94660; 94762; 96374; 99285; J0131; J0330; J0690; J1170; J1644; J1741; J2250; J2543; J2704; J3010; J3370; J3490; J7030